=== PATIENT | male | born 1980 | race American Indian/Alaskan Native ===

== ENCOUNTER 2016-10-28 08:28 | Observation (INO) | payer BC ==
[2016-10-28 08:28] VITALS: BMI 22.7
[2016-10-28 08:34] VITALS: TEMP 98.1
[2016-10-28] MEDS ORDERED: Sodium Chloride 0.9% 1,000 ML IV ONE (09:17)
--- NOTE | 2016-10-28 09:17 | C.PDOC ---
History Of Present Illness 36 y/o male presents to the ED with complains of bilateral lower abdominal pain since this morning. Pain is dull, constant, "burning" sensation and localized. Pt also reports loose stool. Pt states he doesn't feel like the usual renal colic. Denies fever, bloating, vomiting, chest pain or other complaints. Denies history of PUD, colitis. B/L LQ PAIN SINCE THIS MORNING. DULL CONSTANT LOCALIZED. +LOOSE BM. "BURNING". PS DOES NOT FEEL LIKE USUAL RENAL COLIC. NO FEVER. NO BLOATING. DENIES HO PUD, COLITIS EXAM MILD LLQ TEND SOFT NO R/G NO BLOATING REMAINDE RNEG Time Seen by Provider: 10/28/16 08:39 Chief Complaint (Nursing): Abdominal Pain History Per: Patient History/Exam Limitations: no limitations Onset/Duration Of Symptoms: Hrs Current Symptoms Are (Timing): Still Present Severity: Moderate Location Of Pain/Discomfort: RLQ, LLQ Radiation Of Pain To:: None Quality Of Discomfort: Burning Associated Symptoms: Diarrhea. denies: Fever, Chills, Vomiting, Chest Pain Exacerbating Factors: None Alleviating Factors: None Recent travel outside of the [place]: No Past Medical History Reviewed: Historical Data, Nursing Documentation, Vital Signs Vital Signs: Last Vital Signs Temp 98.1 F 10/28/16 08:32 Pulse 88 10/28/16 13:39 Resp 18 10/28/16 13:39 BP 132/79 10/28/16 13:39 Pulse Ox 98 10/28/16 13:39 - Medical History PMH: Kidney Stones (2013) Family History: States: Unknown Family Hx - Social History Hx Tobacco Use: Yes Hx Alcohol Use: Yes Hx Substance Use: No - Immunization History Hx Tetanus Toxoid Vaccination: No Hx Influenza Vaccination: No Hx Pneumococcal Vaccination: No Review Of Systems Except As Marked, All Systems Reviewed And Found Negative. Constitutional: Negative for: Fever Cardiovascular: Negative for: Chest Pain Gastrointestinal: Positive for: Abdominal Pain, Diarrhea. Negative for: Vomiting Physical Exam - Physical Exam Appears: Non-toxic, No Acute Distress Skin: Warm, Dry, No Rash Head: Atraumatic, Normacephalic Chest: Symmetrical Cardiovascular: Rhythm Regular, No Murmur Respiratory: Normal Breath Sounds, No Rales, No Rhonchi, No Wheezing Gastrointestinal/Abdominal: Soft, Tenderness (mild LLQ), No Distention, No Guarding, No Rebound Extremity: Normal ROM Extremity: Bilateral: Atraumatic Neurological/Psych: Oriented x3, Normal Speech ED Course And Treatment - Laboratory Results Result Diagrams: 10/28/16 09:56 10/28/16 09:56 O2 Sat by Pulse Oximetry: 100 (room air) Pulse Ox Interpretation: Normal Progress - Data Reviewed Data Reviewed: Lab, Diagnostic imaging, Old records Medical Decision Making Medical Decision Making: Plan: * CT abdomen * labs * UA * IV fluids * morphine, pepcid, protonix ED OBSERVATION Discharge: Yes Date of observation admission: 10/28/16 Time of observation admission: 09:00 - Observation admission statement Patient is being placed in observation because:: ABD PAIN - Goals of Observation Goals of observation are:: NEG ACUTE ABD, SX IMPROVE - Progress Note Progress Note: 10/28/16 12:40 FEELS BETTER NAD NO S/S ACUTE ABD. CT, LABS NEG Disposition Counseled Patient/Family Regarding: Studies Performed, Diagnosis, Need For Followup - Disposition Disposition: HOME/ ROUTINE Disposition Time: 12:40 Condition: IMPROVED - Clinical Impression Clinical Impression: Abdominal pain - Scribe Statement Eloy Flaherty Provider Attestation: All medical record entries made by the Chanaibfrancis were at my direction and personally dictated by me. I have reviewed the chart and agree that the record accurately reflects my personal performance of the history, physical exam, medical decision making, and the department course for this patient. I have also personally directed, reviewed, and agree with the discharge instructions and disposition.
[2016-10-28] MEDS ORDERED: Sodium Chloride 0.9% 1,000 ML ONE (09:34)
[2016-10-28 10:00] LABS: BASO # 0.1 K/uL (0.0-0.2); BASO % 1.1 % (0.0-2.0); EOS # 0.1 K/uL (0.0-0.7); EOS % 2.2 % (0.0-4.0); HEMATOCRIT 41.3 % (35.0-51.0); LYMPH # 1.8 K/uL (1.0-4.3); LYMPH % 26.4 % (20.0-40.0); MEAN CELL VOLUME 90.8 fL (80.0-94.0); MEAN CORPUSCULAR HEMOGLOBIN 30.2 pg (27.0-31.0); MEAN CORPUSCULAR HGB CONC 33.3 g/dL (33.0-37.0); MEAN PLATELET VOLUME 7.5 fL (7.2-11.7); MONO # 0.4 K/uL (0.0-0.8); MONO % 5.6 % (0.0-10.0); RED CELL DISTRIBUTION WIDTH 13.8 % (11.5-14.5); WHITE BLOOD COUNT 6.7 K/uL (4.8-10.8)
[2016-10-28 10:17] LABS: CHLORIDE 103 mmol/L (98-107); POTASSIUM 4.1 mmol/L (3.6-5.2); SODIUM 140 mmol/L (132-148)
[2016-10-28 10:19] LABS: BILIRUBIN,TOTAL 1.1 mg/dL (0.2-1.3); CARBON DIOXIDE 23 mmol/L (22-30); GFR AFRICAN-AMERICAN > 60
[2016-10-28 10:20] LABS: ALB/GLOB RATIO 1.2 (1.0-2.1); ALKALINE PHOSPHATASE 61 U/L (38-126); ALT/SGPT 18 U/L (21-72); AST/SGOT 26 U/L (17-59); BLOOD UREA NITROGEN 15 mg/dL (9-20); CALCIUM 9.2 mg/dl (8.6-10.4); GLUCOSE,RANDOM 84 mg/dL (75-110); TOTAL PROTEIN 8.5 g/dL (6.3-8.3)
[2016-10-28 10:29] LABS: RBC URINE 2 /hpf (0-3); URINE BACTERIA RARE (<OCC); URINE BILIRUBIN NEGATIVE (NEGATIVE); URINE BLOOD NEGATIVE (NEGATIVE); URINE COLOR Yellow (YELLOW); URINE GLUCOSE (UA) NORMAL (Normal); URINE KETONE 1+ mg/dL (NEGATIVE); URINE LEUKOCYTE ESTERASE NEG Leu/uL (Negative); URINE PROTEIN 1+ mg/dL (NEGATIVE); WBC URINE < 1 /hpf (0-5)
[2016-10-28] MEDS ORDERED: Iohexol 350mg/ml 100 ML ONE (10:57)
--- NOTE | 2016-10-28 12:24 | CT ---
PROCEDURE: CT Abdomen and Pelvis with contrast HISTORY: abd pain COMPARISON: 05/27/2015 TECHNIQUE: Contrast dose: 100 mL Omnipaque 350 Radiation dose: Total exam DLP = 452.47 mGy-cm. This CT exam was performed using one or more of the following dose reduction techniques: Automated exposure control, adjustment of the mA and/or kV according to patient size, and/or use of iterative reconstruction technique. FINDINGS: LOWER THORAX: Unremarkable. LIVER: Unremarkable. No gross lesion or ductal dilatation. GALLBLADDER AND BILE DUCTS: Unremarkable. PANCREAS: Unremarkable. No gross lesion or ductal dilatation. SPLEEN: Unremarkable. ADRENALS: Unremarkable. No mass. KIDNEYS AND URETERS: Several tiny nonobstructing calculi in both kidneys, approximately 3 mm. No hydronephrosis. No renal mass. No ureteral calculus or hydroureter. VASCULATURE: Unremarkable. No aortic aneurysm. BOWEL: Unremarkable. No obstruction. No gross mural thickening. APPENDIX: Normal appendix. PERITONEUM: Unremarkable. No free fluid. No free air. LYMPH NODES: Unremarkable. No enlarged lymph nodes. BLADDER: Unremarkable. REPRODUCTIVE: Normal prostate BONES: No acute fracture. OTHER FINDINGS: None. IMPRESSION: Bilateral tiny nonobstructing renal calculi. Otherwise unremarkable examination.
[2016-10-28 13:41] VITALS: BP 132/79; PULSE 88; RESP 18
[2016-10-28 14:33] VITALS: O2SAT 100
== END 2016-10-28 14:33 | disposition home or self-care (01) ==
LOC: C.ER 08:28 → C.9OBSV 09:00
PROVIDERS: ADMIT Emergency Medicine; ATTEND Emergency Medicine
DX: R10.30 Lower abdominal pain, unspecified (principal); R19.7 Diarrhea, unspecified; Z87.442 Personal history of urinary calculi; Z87.891 Personal history of nicotine dependence

== ENCOUNTER 2018-09-03 12:03 | Emergency (ER) | payer BC ==
[2018-09-03 12:07] VITALS: BMI 25.0
[2018-09-03 12:09] VITALS: BP 134/88; PULSE 103; RESP 18; TEMP 98.6; O2SAT 95
--- NOTE | 2018-09-03 12:21 | C.PDOC ---
History Of Present Illness Patient is a 38 year old male, with no medical problems, who presents to the ED c/o cough with occasional yellow phlegm that has been present for the past week. He also reports a stuffy nose and positive sick contacts. Patient states that he has been taking Mucinex without relief. He denies any fever and has not had a flu shot this year. +smoker. Time Seen by Provider: 09/03/18 12:10 Chief Complaint (Nursing): Cough, Cold, Congestion History Per: Patient History/Exam Limitations: no limitations Onset/Duration Of Symptoms: Other (one week) Current Symptoms Are (Timing): Still Present Sick Contacts (Context): Family Member(s) Associated Symptoms: Cough (yellow phlegm ), Nasal Congestion. denies: Fever Recent travel outside of the [place]: No Additional History Per: Patient Past Medical History Reviewed: Historical Data, Nursing Documentation, Vital Signs Vital Signs: Last Vital Signs Temp 98.6 F 09/03/18 12:07 Pulse 103 H 09/03/18 12:07 Resp 18 09/03/18 12:07 BP 134/88 09/03/18 12:07 Pulse Ox 95 09/03/18 12:07 - Medical History PMH: Kidney Stones (2013) Surgical History: No Surg Hx Family History: States: Unknown Family Hx - Social History Hx Tobacco Use: Yes Hx Alcohol Use: Yes Hx Substance Use: No - Immunization History Hx Tetanus Toxoid Vaccination: No Hx Influenza Vaccination: No Hx Pneumococcal Vaccination: No Review Of Systems Except As Marked, All Systems Reviewed And Found Negative. Constitutional: Negative for: Fever ENT: Positive for: Nose Congestion Respiratory: Positive for: Cough (yellow phlegm) Physical Exam - Physical Exam Appears: Well, Non-toxic, No Acute Distress Skin: Normal Color, Warm, Dry Head: Atraumatic, Normacephalic Eye(s): bilateral: Normal Inspection Ear(s): Bilateral: Normal Nose: Normal Tongue: Normal Appearing Lips: Normal Appearing Throat: Normal Neck: Supple Chest: Symmetrical, No Deformity Cardiovascular: Rhythm Regular, No Murmur Respiratory: No Rales, Rhonchi (left lung base ), No Wheezing Gastrointestinal/Abdominal: Normal Exam Rectal: Deferred Neurological/Psych: Oriented x3, Normal Speech, Normal Motor, Normal Sensation ED Course And Treatment O2 Sat by Pulse Oximetry: 95 (on RA) Pulse Ox Interpretation: Normal Medical Decision Making Medical Decision Making: Initial impression: bronchitis vs. clinical pneumonia Initial plan: dc on PO abx Disposition - Disposition Referrals: Naseem Fine Jr., MD [Medical Doctor] - Disposition: HOME/ ROUTINE Disposition Time: 12:17 Condition: STABLE Additional Instructions: Mr. Jaime, thank you for letting us take care of you today. Return to the ER if your symptoms worsen, or if any problems. Stop smoking. Take the medication listed below as prescribed. You need to be re-evaluated. Call Dr. Naseem Fine at the phone number listed below to make an appointment, or pick a physician from your insurance book. / Prescriptions: Albuterol Sulfate [Proventil Hfa] 2 puff IH Q4 #1 inhaler Azithromycin [Zithromax] 1 tab PO DAILY #7 tab Instructions: Pneumonia in Adults Forms: [facility] (Romanian), Work Excuse Print Language: JAPANESE - POA Present On Arrival: None - Clinical Impression Clinical Impression: Pneumonia - Scribe Statement The provider has reviewed the documentation as recorded by the Juan F Salas All medical record entries made by the Chanaibfrancis were at my direction and personally dictated by me. I have reviewed the chart and agree that the record accurately reflects my personal performance of the history, physical exam, medical decision making, and the department course for this patient. I have also personally directed, reviewed, and agree with the discharge instructions and disposition.
== END 2018-09-03 12:41 | disposition home or self-care (01) ==
LOC: C.ER 12:03
DX: J18.9 Pneumonia, unspecified organism (principal); Z87.891 Personal history of nicotine dependence